=== PATIENT | male | born 1985 | race Two or more races ===

== ENCOUNTER 2024-06-30 22:54 | Emergency (ER) | payer MEDICAID, SELFPAY ==
--- NOTE | 2024-07-01 01:22 | EDNOTE_ITS ---
ED Alcohol RME/HPI General Stated Complaint: INTOXICATION Arrival date/time: 06/30/24 22:54 RME / HPI RME / HPI narrative: Dr. Tenorio?s Main ED Evaluation: 38yo male with no significant past medical history BIBA from home presents to the ED for a chief complaint of alcohol intoxication. Per EMS, patient has been drinking an unknown amount of alcohol tonight. No falls or injuries reported. No vomiting or any other associated symptoms reported. NKA. Related Data Previous Rx's ?Medication ?Instructions ?Recorded Aspirin/Acetaminophen/Caffeine 1 tab PO Q6HR PRN heada zuleyma #30 tabs 04/17/16 MIGRAINE * (EXCEDRIN MIGRAINE *) prednisone 5 mg tablet See Taper PO QDAY #40 tabs 0 06/28/21 sucralfate 1 gram tablet (Carafate) 1 g PO BID #20 tab s 06/28/21 Allergies Allergy/AdvReac Type Severity Reaction Status Date / Time No Known Allergies Allergy Verified 06/28/21 12:49 Review of Systems Review of Systems Systems Reviewed: All systems reviewed, normal except as documented Past Medical History Past Medical History CARDIAC: Negative Congestive Heart Failure RESPIRATORY: Negative Chronic Obstructive Pulmonary Disease (COPD) GENITOURINARY: Negative Renal Disease ENDOCRINE: Negative Diabetes Mellitus Type 1 or Diabetes Mellitus Type 2 Social History SMOKING STATUS: Light (< 1 pack/day) SUBSTANCE USE: unknown ED Exam Narrative Physical exam: GENERAL APPEARANCE: AxOx4, appears intoxicated, generally well-appearing, no acute distress. HEENT: NC, AT. MMM. EOMI, clear conjunctiva, oropharynx clear. NECK: Supple without lymphadenopathy. No stiffness or restricted ROM. HEART: Normal rate and regular rhythm, normal S1/S1, no m/r/g LUNGS: CTAB, moving air well. No crackles or wheezes are heard. ABDOMEN: Soft, nontender, nondistended with good bowel sounds heard. BACK: No midline C/T/L spine pain or deformity, No CVAT, no obvious deformity. EXTREMITIES: Without cyanosis, clubbing or edema. MUSCULOSKELETAL: FROM of all major joints, no chest tenderness NEUROLOGICAL: Grossly nonfocal. Alert and oriented, moving all 4 extremities. CN not formally tested but appear grossly intact. Skin: Warm and dry without any rash. Course Quality Measures none Discharge Plan Plan Patient Disposition: Elopement Prescriptions/Referrals Prescriptions/Med Rec: No Action Aspirin/Acetaminophen/Caffeine MIGRAINE * (EXCEDRIN MIGRAINE *) 1 TAB tablet 1 tab PO Q6HR PRN (Reason: headache) Qty: 30 0RF prednisone 5 mg tablet See Taper PO QDAY Qty: 40 0RF Taper: Prednisone Taper 20 mg DAILY for 2 Days and 0 Hour 10 mg DAILY for 2 Days and 0 Hour 5 mg DAILY for 7 Days and 0 Hour Rx Instructions: prednisone 5 mg: take 8 tablets (40 mg) on Day 1; 7 tablets (35 mg) on Day 2; then decrease by 1 tablet every day until finished sucralfate [Carafate] 1 gram tablet 1 g PO BID Qty: 20 0RF Referrals: No Primary/Family,Physician [Primary Care Provider] - In 1 week Problem List Clinical Impression: Alcohol intoxication Patient/Caregiver Discharge Instructions Education Materials: ED Alcohol Intoxication Additional Instructions: Do not drink alcohol in excess, consider stopping alcohol completely for better health. You can follow-up with your primary care doctor and or [facility] if you feel ready for alcohol and or drug rehabilitation/support. Print Language: Hebrew Alcohol MDM Narrative MDM Narrative: Scribe Attestation: 07/01/24 Tasneem Sprague am scribing for and in the presence of Dr. Tenorio. Patient data External records reviewed:: [facility] previous records (Per chart review, patient was seen here on 03/05/20 for alcohol intoxication.) Clinical information provided by:: patient Social determinants that could affect healthcare access:: alcohol use Patient has the following chronic illnesses:: none How is presenting disease/condition affected by chronic disease/condition?: no chronic disease Evaluation data The following diagnostics were reviewed and interpreted by me:: other (specify) (none) Lab and/or radiology exams considered but not ordered:: none Interpretation Summary: none Medications / Prescriptions Medications or Prescriptions considered but not ordered:: none Medication administrations:: none Consultations Consultation(s) initiated? (list below): No Diagnosis Differential diagnosis alcohol: alcohol intoxication and other (alcohol abuse, drug abuse) Most likely diagnosis given after review of the tests above:: see clinical impression below Admission Indicated Admission indicated?: not indicated Admission Request Was there a request for admission?: No Disposition Plan Disposition Plan: Discharge Discharge Attestation Discharge Attestation: The patient and all family members were given an opportunity to ask questions and understood the discharge instructions. Discharge instructions specifically effects, indications for sooner follow up or return to the emergency department, and the expected course of current diagnosis. Patient condition: Stable
== END 2024-07-01 01:45 | disposition left against medical advice (07) ==
PROVIDERS: Emergency Provider Emergency Medicine
DX: Z53.21 Procedure and treatment not carried out due to patient leaving prior to being seen by health care provider (principal)